=== PATIENT | female | born 1955 | race Caucasian/White ===

== ENCOUNTER → 2019-10-19 11:44 | Outpatient (POV) | payer MEDICARE, MEDICAID, SELFPAY ==
[2019-10-19 12:01] VITALS: BMI 52.5
--- NOTE | 2019-10-19 15:30 | [facility].PMCON ---
Assessment and Plan (1) Lung cancer Current visit: Yes Status: Chronic Category: Medical Code(s): C34.90 - Malignant neoplasm of unspecified part of unspecified bronchus or lung (2) Back pain Current visit: Yes Status: Chronic Category: Medical Code(s): M54.9 - Dorsalgia, unspecified (3) Degenerative joint disease (DJD) of lumbar spine Current visit: Yes Status: Chronic Category: Medical Code(s): M47.816 - Spondylosis without myelopathy or radiculopathy, lumbar region - Assessment and plan all Dx Assessment and Plan for all problems:: We will refill her oxycodone 20 mg 1 p.o. 6 times a day and give her 1 month worth of medication. I will discuss with Dr. louis in regards to potential differing treatments. Patient's been instructed to call the office if she has any issues prior to her next appointment. This encounter was performed as a telemedicine visit via secure 2 way video and audio to minimize risk and transmission of Covid-19. The patient and we understand the limitations of a telemedicine visit including inability to check reflexes, possibly missing subtle findings on physical exam. Alternative options were presented to the patient and the patient elected to proceed with the visit. We specifically discussed risk factors for Covid-19 including age, heart or lung disease, diabetes, immunosuppression and travel. We also discussed that NSAIDs may worsen Covid-19 infection symptoms and that they should not be used to treat Covid-19 symptoms. Patient was also informed that corticosteroids in any form oral or injectable will decrease immune response and may increase risk of Covid-[address] Lowe has reviewed this patient's chart and this note and agrees with plan of care. Patient has been instructed to call the office if they have any issues prior to the next appointment. HPI - Data of Consult Consult date: 10/19/19 Requesting Physician: Tresa Carrero APRN Primary Care Provider: Referral Provider, MD - Consult Narrative Reason for consult: Back pain, leg pain, intercostal pain History of present illness: Ms. Yoder is a 64 year old female who is an established patient at our [place] [facility] however due to the current pandemic is unable to make appointments. We will do a telehealth appointment today. She is following up for medication refills. She is currently on oxycodone 20 mg 1 p.o. 6 times a day. She is being treated for low back pain leg pain and intercostal pain secondary to treatment of lung cancer. Patient states her pain medication is not helping her very much at this point. Patient did have an MRI of her low back which shows degeneration. Patient might be a candidate for some injective therapy. She is continuing on with the oncology center. I will discuss with Dr. louis to see any differing medication regimens for the patient. Patient's urine drug screens have been appropriate her Kvng #[id number] reviewed and appropriate. CC: Tresa Carrero APRN [facility] [place] History I have reviewed the patient's past medical history: Yes Medical History: Reports:: Hypertension Denies:: Cancer, Diabetes Mellitus Type 1, Diabetes Mellitus Type 2, MRSA *Have you ever received a pneumonia vaccine?: Yes *Have you received a flu vaccine this season?: Yes Other Medical History: Reports: Arthritis Other Surgeries: Yes: Cholecystectomy Amputation: No Fractures: No - *Social History Smoking Status: Never smoker Alcohol Intake: never *Occupational Status:: other Housing: house Household Members: other *Travel in the last 8 weeks: None Family Hx:: Unable to obtain Review of Systems - Review of Systems ROS General: no recent weight change, no fever, no sleep disturbances Respiratory: no cough, no shortness of air, no recurring pulmonary infections Cardiovascular/Peripheral Vascular: No chest pain, No palpitations, no edema, no shortness of breath. Gastrointestinal: no new onset in
== END ==
PROVIDERS: Visit Provider Clinical Nurse Specialist Family Health
DX: M47.816 Spondylosis without myelopathy or radiculopathy, lumbar region (principal); C34.90 Malignant neoplasm of unspecified part of unspecified bronchus or lung
CPT/HCPCS: 99202